=== PATIENT | female | born 1955 | race Native Hawaiian/Other Pacific Islander ===

== ENCOUNTER 2017-06-18 18:49 | Emergency (ER) | payer OTHER ==
[~2017-06-18] VITALS: Ht 149.9 cm; Wt 98.0 kg
[2017-06-18 20:44] LABS: PLATELET COUNT 273 K/uL (152-353)
[2017-06-18 20:49] LABS: POTASSIUM 3.8 mmol/L (3.6-5.2)
[2017-06-18 22:17] VITALS: BP 112/60; TEMP 98.3
== END 2017-06-18 22:18 | disposition home or self-care (01) ==
LOC: ED 18:49
PROVIDERS: Specialist
DX: J98.01 Acute bronchospasm (principal)
CPT/HCPCS: 36415; 80048; 85027; 94664; 96372; 99283; J1100; J2930

== ENCOUNTER 2019-12-06 15:42 | Inpatient (IN) | payer OTHER ==
[2019-12-06] VITALS (15 sets, daily range): BP systolic 111–164; BP diastolic 58–79; TEMP 98.5–99.5; Ht 149.9 cm; Wt 89.5 kg
[~2019-12-06] VITALS: Ht 149.9 cm; Wt 89.5 kg
[2019-12-06 16:27] LABS: PLATELET COUNT 146 K/uL (152-353)
[2019-12-06 16:42] LABS: POTASSIUM 4.5 mmol/L (3.6-5.2); SODIUM 137 mmol/L (136-145)
[2019-12-06] MEDS ORDERED: OMEPRAZOLE DR20 MG PO (20:16)
[2019-12-07] VITALS (15 sets, daily range): BP systolic 93–140; BP diastolic 46–84; TEMP 97.8–98.8
[2019-12-07 05:17] LABS: PLATELET COUNT 148 K/uL (152-353)
[2019-12-07 05:26] LABS: POTASSIUM 4.7 mmol/L (3.6-5.2)
== END 2019-12-07 22:11 | disposition expired | DRG 208 ==
LOC: ED 15:42 → ICU 17:20
PROVIDERS: Internal Medicine Endocrinology, Diabetes & Metabolism; ADMIT Family Medicine
PROC: 5A1935Z Respiratory Ventilation, Less than 24 Consecutive Hours (ICD-10-PCS; principal; 2019-12-07)
PROC: 0BH17EZ Insertion of Endotracheal Airway into Trachea, Via Natural or Artificial Opening (ICD-10-PCS; 2019-12-07)
DX: U07.1 COVID-19 (principal); J96.01 Acute respiratory failure with hypoxia; E11.10 Type 2 diabetes mellitus with ketoacidosis without coma; E87.4 Mixed disorder of acid-base balance; D69.6 Thrombocytopenia, unspecified; R19.7 Diarrhea, unspecified; K21.9 Gastro-esophageal reflux disease without esophagitis
CPT/HCPCS: 36415; 36600; 80053; 81000; 82805; 83036; 83605; 84484; 85027; 85379; 86769; 87040; 87077; 87185; 87186; 87205; 87502; 87635; 87651; 93005; 94660; 94667; 94668; 94760; 96365; 96375; 99285; J0696; J1100; J1170; J1650; J1815; J1956; J2060; J2250; J2930; J3010; J3490; U0002